=== PATIENT | female | born 1935 | race Caucasian/White ===

== ENCOUNTER 2017-07-06 06:02 | Day surgery (SDC) | payer OTHER ==
[~2017-07-06] VITALS: Ht 162.6 cm; Wt 79.5 kg
[2017-07-06] MEDS ORDERED: SODIUM CHLORIDE 0.9% 1,000 ML IV SCH (06:22)
[2017-07-06 06:27] VITALS: BP 137/68
[2017-07-06 07:05] LABS: HEMATOCRIT 36.7 % (34.6-47.8); HEMOGLOBIN 12.4 g/dL (11.7-16.4); WHITE BLOOD COUNT 11.5 x10^3/uL (3.4-10)
[2017-07-06 07:17] LABS: BLOOD UREA NITROGEN 37 mg/dL (7-18)
[2017-07-06] MEDS ORDERED: POTA20TA89 PO (07:17)
[2017-07-06] MEDS ORDERED: NYST1POW2 TD (07:17)
[2017-07-06] MEDS ORDERED: Vitamin d3 PO (07:17)
[2017-07-06] MEDS ORDERED: ATEN50TA41 PO (07:17)
[2017-07-06] MEDS ORDERED: LOSA25TA5 PO (07:17)
[2017-07-06] MEDS ORDERED: FENO145T13 PO (07:17)
[2017-07-06] MEDS ORDERED: RANI150T4 PO (07:17)
[2017-07-06] MEDS ORDERED: SPIR25TA3 PO (07:17)
[2017-07-06] MEDS ORDERED: MULT-6 PO (07:17)
[2017-07-06] MEDS ORDERED: NAPR500T3 PO (07:17)
[2017-07-06] MEDS ORDERED: BUME1TAB21 PO (07:17)
[2017-07-06] MEDS ORDERED: MIDAZOLAM 1 MG/ML, 5ML ONE (07:39)
[2017-07-06] MEDS ORDERED: CEFAZOLIN PMX 1GM/50ML 50 ML ONE ×2 (07:40→07:50)
[2017-07-06] MEDS ORDERED: FENTANYL PF 100 MCG/2ML ONE (07:40)
[2017-07-06] MEDS ORDERED: LIDOCAINE 2%, 20ML ONE (07:40)
[2017-07-06] MEDS ORDERED: CEFAZOLIN 1,000 MG ONE (07:41)
[2017-07-06] MEDS ORDERED: DOXY100C2 PO (08:57)
== END 2017-07-06 10:11 ==
LOC: CACL 06:02
PROVIDERS: ATTEND Internal Medicine Cardiovascular Disease
DX: Z45.02 Encounter for adjustment and management of automatic implantable cardiac defibrillator (principal); I44.2 Atrioventricular block, complete; I47.2 Ventricular tachycardia; I10 Essential (primary) hypertension; E78.5 Hyperlipidemia, unspecified; Z98.49 Cataract extraction status, unspecified eye; Z95.0 Presence of cardiac pacemaker
CPT/HCPCS: 33263; 36415; 71020; 80048; 85025; 85610; 93005; 99156; 99157; C1721; J0690; J2250; J3010; J3490

== ENCOUNTER 2017-12-04 14:58 | Emergency (ER) | payer OTHER ==
[~2017-12-04] VITALS: Ht 162.6 cm; Wt 84.6 kg
[~2017-12-04 14:58] MED LIST: ATEN50TA41 PO; BUME1TAB21 PO; DOXY100C2 PO; FENO145T13 PO; LOSA25TA5 PO; MULT-6 PO; NAPR500T4 PO; NYST1POW2 TD; POTA20TA89 PO; RANI150T4 PO; SPIR25TA3 PO; Vitamin d3 PO
[2017-12-04 17:17] LABS: BASOPHILS # (AUTO) 0.08 x10^3/uL (0-0.1); BASOPHILS % (AUTO) 1 % (0-1); EOSINOPHILS # (AUTO) 0.16 x10^3/uL (0-0.4); EOSINOPHILS % (AUTO) 2 % (1-7); LYMPHOCYTES # (AUTO) 1.56 x10^3/uL (1-3.4); LYMPHOCYTES % (AUTO) 20 % (22-44); MD NO; MEAN CORPUSCULAR HEMOGLOBIN 29.9 pg (27.0-34.8); MEAN CORPUSCULAR HGB CONC 33.1 g/dL (32.4-35.8); MEAN CORPUSCULAR VOLUME 90.3 fL (80-100); MEAN PLATELET VOLUME 8.5 fL (7.4-10.4); MONOCYTES # (AUTO) 0.67 x10^3/uL (0.2-0.8); MONOCYTES % (AUTO) 9 % (2-9); NEUTROPHILS # (AUTO) 5.35 x10^3/uL (1.8-6.8); NEUTROPHILS % (AUTO) 68 % (42-75); PLATELET COUNT 225 x10^3/uL (130-400); RED BLOOD COUNT 4.32 x10^6/uL (3.82-5.3); RED CELL DISTRIBUTION WIDTH 14.5 % (9.6-15.2)
[2017-12-04 17:17] LABS: RAPID INFLUENZA A Negative (Negative); RAPID INFLUENZA B Negative (Negative)
[2017-12-04 17:28] LABS: ALBUMIN 4.1 g/dL (3.4-5.0); ANION GAP 8 mmol/L (5-15); CALCIUM 9.2 mg/dL (8.5-10.1); CHLORIDE 108 mmol/L (98-107); CREATININE 1.12 mg/dL (0.55-1.02)
[2017-12-04 17:38] VITALS: BP 176/67
== END 2017-12-04 18:06 | disposition home or self-care (01) ==
LOC: ED 18:00
DX: J06.9 Acute upper respiratory infection, unspecified (principal); I10 Essential (primary) hypertension; Z95.810 Presence of automatic (implantable) cardiac defibrillator
CPT/HCPCS: 36415; 71046; 80048; 82040; 83605; 85025; 87040; 87400; 99285